=== PATIENT | male | born 1970 | race Caucasian/White ===

== ENCOUNTER 2020-11-20 10:21 | Emergency (ER) | payer OTHER, SELFPAY ==
--- NOTE | ~2020-11-20 | XR_ITS ---
EXAMINATION: XR tibia fibula LT 2V DATE: 11/20/2020 11:02 INDICATION: Left lower leg pain post injury with anterior laceration. TECHNIQUE: Anteroposterior and lateral views of the left tibia and fibula were obtained. COMPARISON: None. FINDINGS: Alignment is normal. No fracture. Joint spaces are normal. There is soft tissue swelling surrounding a laceration at the anterior to the proximal to mid left tibial diaphysis. No radiopaque foreign bodi es identified. Small plantar calcaneal spur. IMPRESSION: 1. No acute osseous abnormality or radiopaque foreign body. Reviewed, dictated and finalized at location A.
[2020-11-20 10:31] VITALS: BP 124/89; PULSE 74; RESP 16; TEMP 37; O2SAT 99
--- NOTE | 2020-11-20 10:46 | ED.LOWEXIN ---
HPI - Extremity Injury (Lower) General Chief Complaint: Extremity Injury, Lower Stated Complaint: Injury to both Legs/Possible stitches in left Leg Time Seen by Provider: 11/20/20 11:10 Source: patient and RN notes reviewed Mode of arrival: ambulatory Limitations: no limitations History of Present Illness HPI Narrative: 49-year-old male who presents to [facility] with complaints of cinder blocks falling onto his lower legs approximately 1 hours prior to arrival. Patient states that he was working on a fire pit and blocks fell onto his lower leg with 7cm abrasion noted to the anterior aspect of his right leg with no acute bleeding noted. 1 cm area noted to anterior aspect of his left leg with superior aspect abrasion but lower 4.5 cm area open wound with swelling present and small amount of active bleeding. Patient reports that his tetanus shot is not up to date. MD complaint: leg injury Onset (ago): hour(s) (1) Type of Injury: blunt Place: home Exacerbating factors: movement Context: direct blow Associated symptoms: other (laceration) Related Data Allergies Allergy/AdvReac Type Severity Reaction Status Date / Time No Known Allergies Allergy Verified 11/20/20 10:42 Review of Systems Review of Systems: Narrative: CONSTITUTIONAL: Denies fever, chills, or sweats. EYES: Denies visual changes, redness, or discharge. ENT: Denies rhinorrhea, congestion, sore throat, or otalgia. CARDIOVASCULAR: Denies chest pain, palpitations, or edema. RESPIRATORY: Denies cough or dyspnea. GASTROINTESTINAL: Denies abdominal pain, nausea, vomiting, or diarrhea. GENITOURINARY: Denies dysuria or hematuria. SKIN: Denies rash or itching.Positive for left leg laceration distal aspect of wound with superior aspect abrasion to left leg, with 7 cm superficial abrasion to anterior right lower leg MUSCULOSKELETAL: Denies back pain, joint pain, or myalgia. Verbalized discomfort to anterior aspect of bilateral lower legs with left > than right. NEUROLOGIC: Denies headache, numbness, or weakness. PSYCHIATRIC: Denies anxiety or depression. All systems reviewed & are unremarkable except as noted in HPI and below PMFSH Past Medical History Medical History (Updated 11/21/20 @ 14:35 by Latonia Sandy NP) No acute medical problems Surgical History Surgical History (Updated 11/21/20 @ 14:32 by Latonia Sandy NP) No history of previous surgery Family History Family History (Updated 11/21/20 @ 14:33 by Latonia Sandy NP) Other No significant family history Social History Social History (Updated 11/21/20 @ 14:32 by Latonia Sandy NP) Smoking packs per day: 2 Smoking cigarettes per day: 40.0 Smoking status: Current every day smoker Tobacco type: cigarettes Alcohol intake: current Alcohol use details: social Substance use: unknown Living arrangements: with family Gender identity (if verbalized by the patient): Male Comments At time of signature agree with nursing documentation of past medical, surgical social and family history. There is no relevant family history pertinent to presenting complaint. Exam Narrative: Exam Narrative: GENERAL: Well-appearing, well-nourished, and in no acute distress. HEAD: Normocephalic, atraumatic. EYES: PERRLA and EOMI. ENT: Nares clear, no rhinorrhea or epistaxis. Mucous membranes moist. NECK: Supple. no lymphadenopathy CHEST: Clear to auscultation. No respiratory distress.SAO2 99% on room air. HEART: Regular rate and rhythm. No murmur heard. Normal peripheral pulses. ABDOMEN: Soft, nontender, nondistended, normal active bowel sounds. EXTREMITIES: Normal range of motion. No edema. with exception some swelling of lower anterior left anterior lower leg surrounding laceration. SKIN: Warm, dry, no rash.7cm superficial abrasion to anterior aspect of right lower leg, 11 cm wound to left lower leg with laceration to distal region of 4.5 cm and superior area superficial abrasion of skin, No acute pain
[2020-11-20] MEDS: TETANUS,DIPHTHERIA,AC PERTUSSIS ADULT (0.5 ML) BOOSTRIX IM (11:03)
== END 2020-11-20 12:13 | disposition home or self-care (01) ==
PROVIDERS: Emergency Provider Registered Nurse; PCP Family Medicine
DX: S81.812A Laceration without foreign body, left lower leg, initial encounter (principal); S80.811A Abrasion, right lower leg, initial encounter; W20.8XXA Other cause of strike by thrown, projected or falling object, initial encounter; F17.210 Nicotine dependence, cigarettes, uncomplicated
CPT/HCPCS: 12031; 73590; 90471; 90715; 96372; 99213; G0463